=== PATIENT | female | born 1990 | race Caucasian/White ===

== ENCOUNTER 2018-05-27 17:17 | Emergency (ER) | payer SELFPAY ==
[~2018-05-27] VITALS: Ht 162.5 cm; Wt 73.9 kg
--- NOTE | ~2018-05-27 | EKG ---
[place], [place] ELECTROCARDIOGRAM REPORT NAME: MARY ARAYA UNIT #: [id number] ROOM: DOCTOR: EPIPHANY DRAFT REPORT BIRTHDATE: [birth year] [facility] Test Date: 2018-05-27 Test Time: 17:39:29 Pat Name: MARY ARAYA Department: Room: Gender: F Machine Bender: : 1990 Requested By: HERMAN MONTANEZ Order Number: [id number] Reading MD: Bernabe Naidu MD Measurements Intervals [place] Rate: 79 P: 31 VT: 134 QRS: 44 QRSD: 85 T: 23 QT: 410 QTc: 471 Interpretive Statements Sinus rhythm Baseline wander in lead(s) V2 Electronically Signed On 05-28-2018 14:44:45 PDT by Bernabe Naidu MD CM:EKGRPT:ELECTROCARDIOGRAM REPORT [id number] HERMAN MONTANEZ EPIPHANY DRAFT REPORT HERMAN MONTANEZ
[2018-05-27 17:42] LABS: BASO # 0.1 10*3/uL (0.0-0.1); BASO % 0.7 % (0.0-1.0); EOS # 0.2 10*3/uL (0.0-0.4); EOS % 2.6 % (1.0-4.0); HEMATOCRIT 37.9 % (37.0-47.0); HEMOGLOBIN 12.6 g/dl (12.0-16.0); LYMPH # 3.3 10*3/uL (1.3-4.4); LYMPH % 37.4 % (27.0-41.0); MEAN CELL VOLUME 82.4 fl (81.0-99.0); MEAN CORPUSCULAR HGB 27.4 pg (27.0-31.0); MEAN CORPUSCULAR HGB CONC 33.2 g/dl (33.0-37.0); MEAN PLATELET VOLUME 8.5 fl (9.6-12.3); MONO # 0.7 10*3/uL (0.1-1.0); MONO % 8.4 % (3.0-9.0); NEUT # 4.4 10*3/uL (2.3-7.9); NEUT % 50.6 % (47.0-73.0); PLATELET COUNT AUTOMATED 426 10*3/uL (130-400); RED CELL DISTRI WIDTH 13.2 % (0-14.5); WHITE BLOOD COUNT 8.8 10*3/uL (4.8-10.8)
[2018-05-27 18:02] LABS: ALBUMIN 3.6 gm/dl (3.1-4.5); ALKALINE PHOSPHATASE 87 U/L (45-117); BUN 12 mg/dl (7-24); CHLORIDE 105 mmol/L (98-107); CREATININE 0.75 mg/dL (0.55-1.02); POTASSIUM 3.7 mmol/L (3.5-5.1); SGOT/AST 13 IU/L (3-35); SGPT/ALT 13 U/L (12-78); SODIUM 141 mmol/L (136-145); TOTAL PROTEIN 7.3 gm/dL (6.4-8.2)
[2018-05-27 18:03] LABS: TROPONIN I < 0.015 ng/ml (<0.045)
[2018-05-27 18:08] LABS: THYROID STIM HORMONE (HS) 0.919 uIU/ml (0.358-4.75)
[2018-05-27] MEDS ORDERED: PRINIVIL10 MG PO (18:44)
== END 2018-05-27 18:48 | disposition home or self-care (01) ==
LOC: ED 17:17
PROVIDERS: Nurse Practitioner Family
DX: I10 Essential (primary) hypertension (principal); R51 Headache; Z88.1 Allergy status to other antibiotic agents

== ENCOUNTER 2018-07-27 16:30 | Emergency (ER) | payer MEDICAID ==
[~2018-07-27] VITALS: Ht 162.5 cm; Wt 79.4 kg
[~2018-07-27 16:30] MED LIST: PRINIVIL10 MG PO
[2018-07-27 17:42] LABS: BILIRUBIN NEGATIVE (NEGATIVE); BLOOD 2+ (NEGATIVE); CLARITY SL CLOUDY (CLEAR); COLOR YELLOW (YELLOW); GLUCOSE NEGATIVE (NEGATIVE); KETONE NEGATIVE (NEGATIVE); LEUKO ESTERASE NEGATIVE (NEGATIVE); NITRITE NEGATIVE (NEGATIVE); SPECIFIC GRAVITY 1.015 (1.005-1.030); UROBILINOGEN 0.2 E.U./dl (0.2-1.0)
[2018-07-27 17:50] LABS: BACTERIA 1+; CALCIUM OXALATE CRYSTALS 1+; EPITHELIAL CELLS TNTC
[2018-07-27 17:52] LABS: BASO # 0.1 10*3/uL (0.0-0.1); BASO % 0.8 % (0.0-1.0); EOS # 0.2 10*3/uL (0.0-0.4); EOS % 2.3 % (1.0-4.0); HEMATOCRIT 39.3 % (37.0-47.0); HEMOGLOBIN 13.3 g/dl (12.0-16.0); LYMPH # 2.6 10*3/uL (1.3-4.4); MEAN CELL VOLUME 83.1 fl (81.0-99.0); MEAN CORPUSCULAR HGB 28.1 pg (27.0-31.0); MEAN CORPUSCULAR HGB CONC 33.8 g/dl (33.0-37.0); MONO # 0.5 10*3/uL (0.1-1.0); MONO % 5.8 % (3.0-9.0); NEUT # 5.5 10*3/uL (2.3-7.9); NEUT % 61.9 % (47.0-73.0); PLATELET COUNT AUTOMATED 457 10*3/uL (130-400); RED BLOOD COUNT 4.73 10*6/uL (4.10-5.10); RED CELL DISTRI WIDTH 13.4 % (0-14.5); WHITE BLOOD COUNT 8.9 10*3/uL (4.8-10.8)
[2018-07-27 18:09] LABS: ALBUMIN 3.7 gm/dl (3.1-4.5); ALKALINE PHOSPHATASE 109 U/L (45-117); BUN 13 mg/dl (7-24); CHLORIDE 105 mmol/L (98-107); CREATININE 0.69 mg/dL (0.55-1.02); LIPASE 351 U/L (73-393); POTASSIUM 3.9 mmol/L (3.5-5.1); SGOT/AST 25 IU/L (3-35); SGPT/ALT 25 U/L (12-78); SODIUM 138 mmol/L (136-145); TOTAL PROTEIN 7.6 gm/dL (6.4-8.2)
[2018-07-27 18:11] LABS: BETA-HCG, QUANT < 1.0 mIU/mL (1-3)
[2018-07-27] MEDS ORDERED: CYCLOBENZAPRINE10 MG PO (20:04)
[2018-07-27] MEDS ORDERED: VIBRAMYCIN100 MG PO (20:04)
== END 2018-07-27 20:10 | disposition home or self-care (01) ==
LOC: ED 16:30
PROVIDERS: Emergency Medicine
DX: S16.1XXA Strain of muscle, fascia and tendon at neck level, initial encounter (principal); R30.0 Dysuria; R11.2 Nausea with vomiting, unspecified; R35.0 Frequency of micturition; Z88.1 Allergy status to other antibiotic agents; X58.XXXA Exposure to other specified factors, initial encounter; Y93.89 Activity, other specified; Y92.89 Other specified places as the place of occurrence of the external cause; Y99.8 Other external cause status